=== PATIENT | male | born 1940 | race Caucasian/White ===

== ENCOUNTER 2018-05-03 18:10 | Observation (INO) | payer MEDICARE, BC ==
[2018-05-03] MEDS ORDERED: Sodium Chloride 0.9% 1,000 ML IV SCH (19:00)
[2018-05-03] MEDS ORDERED: Cefepime 2 GM Vial IVPUSH ONE (19:27)
--- NOTE | 2018-05-03 19:58 | EDM.PDOC ---
ED HPI GENERAL MEDICAL PROBLEM - General Stated Complaint: DIZZY, DOUBLE VISION Time Seen by Provider: 05/03/18 19:09 Source of Information: Reports: Patient History Limitations: Reports: No Limitations - History of Present Illness INITIAL COMMENTS - FREE TEXT/NARRATIVE: c/o sudden onset diplopia 2h [employer] no better, was reading magazine, could not read, no BARRIOS, slight N which is chronic, no V, no f/c/d played 18 holes golf yesterday ([employer], shot 59 for each nine, usual in low 40s), went to dentist this AM and had 2 cavities filled no pain, had weakness and diplopia and unable to walk beginning 4p today no sob 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" with L nephrectomy 2y ago , had lung mets 1m ago had 2 tumors the size of a tennis and golf ball removed from abd, rather than RT which "would have burned a hole in my intestines" 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, 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, had a helmet placed on his head a single RT done with destruction of tumor, last MRI 04/01 reported to have no reoccurrence all surgeries at [facility] today was so weak he had to pull himself up CRP 1.5 form 2y ago BUN/creat 27/1.7 from 8m ago hgb 14.8 from 8m ago AST/ALT/alk phos /13/145 form 8m ago bone scan 1y ago with update at R 7th rib and DJD and no definite bony mets CT abd/pelvis 8m ago on 09-15-17 with splenomegaly by 2 cm increase, probably med in mid abd to R, s/p L nephecotmy, cholelithiasis, sigmoid tics, ASD, DJD gets Opdivo IV q2w has HTN, denies CV problems sxs suspicious for bacteremia and possible sepsis after dental work this AM, will give vanco and cefepime once BC completed - Related Data Allergies Allergy/AdvReac Type Severity Reaction Status Date / Time benazepril HCl Allergy Severe Sweating Verified 07/03/16 18:11 [From Lotensin] clarithromycin Allergy Severe Confusion Verified 07/03/16 18:11 erythromycin base Allergy Severe Nausea and Verified 07/03/16 18:11 Vomiting sulfamethoxazole Allergy Severe Confusion Verified 07/03/16 18:11 [From Bactrim] trimethoprim [From Bactrim] Allergy Severe Confusion Verified 07/03/16 18:11 Home Meds: Home Meds Citalopram Hydrobromide [Citalopram HBr] 20 mg PO DAILY 06/15/16 [History] Acetaminophen [Tylenol] 650 mg PO Q4H PRN 07/03/16 [History] Levothyroxine 25 mcg PO ACBREAKFAST 07/03/16 [History] amLODIPine [Norvasc] 10 mg PO DAILY 07/03/16 [History] Amoxicillin/Potassium Clav [Augmentin 875-125 Tablet] 1 each PO BID #13 tablet 05/03/18 [Rx] Past Medical History Cardiovascular History: Reports: Hypertension Respiratory History: Reports: SOB Other Respiratory History: hx pneu in past Genitourinary History: Reports: Other (See Below) Other Genitourinary History: R kidney CA Psychiatric History: Reports: Anxiety Endocrine/Metabolic History: Reports: Hypoparathyroidism Immunologic History: Reports: Immunosuppression Oncologic (Cancer) History: Reports: Renal - Infectious Disease History Infectious Disease History: Reports: Chicken Pox, Measles - Past Surgical History HEENT Surgical History: Reports: Cataract Surgery Male Surgical History: Reports: Nephrectomy, TURP-Transurethral Resection of Prostate, Other (See Below) Oncologic Surgical History: Reports: Lobectomy, Other (See Below) ED ROS GENERAL - Review of Systems Review Of Systems: See Below Constitutional: Reports: Weakness, Other (ate hamburger for supper). Denies: Fever, Chills, Diaphoresis, Decreased Appetite HEENT: Reports: Vision Change Respiratory: Reports: No Symptoms Cardiovascular: Reports: No Symptoms Endocrine: Reports: No Symptoms GI/Abdominal: Reports: No Symptoms : Reports: No Symptoms Musculoskeletal: Reports: No Symptoms Skin: Reports: No Symptoms Neurological: Reports: Dizziness, Difficulty Walking. Denies: Headache Psychiatric: Reports: No Symptoms Hematologic/Lymphatic: Reports: No Symptoms Immunologic: Reports: No Symptoms ED EXAM GENERAL W FULL EYE - Physical Exam Exam: See Below Exam Limited By: No Limitations General Appearance: Alert, WD/WN, No Apparent Distress, Other (alert, pleasant, appears weak, nontoxic, cooperative) Eye Exam: Bilateral Eye: Other (PERRLA, EOMI, VF intact to confrontation, reads words at 12" altho says he sees 1.5 images) Ears: Normal External Exam, Hearing Grossly Normal Nose: Normal Inspection, Normal Mucosa, No Blood Throat/Mouth: Normal Inspection, Normal Lips, Normal Teeth, Normal Gums, Normal Oropharynx, Normal Voice, No Airway Compromise Head: Atraumatic, Normocephalic Neck: Normal Inspection, Supple, Non-Tender, Full Range of Motion Respiratory/Chest: No Respiratory Distress, Lungs Clear, Normal Breath Sounds, No Accessory Muscle Use, Chest Non-Tender Cardiovascular: Regular Rate, Rhythm, No Edema, No Gallop, No JVD, No Rub, Systolic Murmur GI/Abdominal: Soft, Non-Tender, No Distention, Other (healing fresh midline scar c/w 1m of age, NT) Back Exam: Normal Inspection, Full Range of Motion, NT Extremities: Normal Inspection, Normal Range of Motion, Non-Tender, No Pedal Edema, Normal Capillary Refill, Other Neurological: Alert, Oriented, CN II-XII Intact, Normal Cognition, Normal Reflexes, No Motor/Sensory Deficits, Other (DTRs 2+ x8, symmetric, toes downgoing, 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, ankle flex/ext 5/5 b/l, hip flex/ext symmetric and perhaps slightly diminished at 4.5/5 b/l) Psychiatric: Normal Affect, Normal Mood Skin Exam: Warm, Dry, Intact, Normal Color, No Rash Lymphatic: No Adenopathy Course - Vital Signs Last Recorded V/S: Last Vital Signs Temp 36.8 C 05/03/18 18:10 Pulse 71 05/03/18 18:10 Resp 15 05/03/18 18:10 BP 190/86 H 05/03/18 18:10 Pulse Ox 95 05/03/18 18:10 - Orders/Labs/Meds Orders: Active Orders 24 hr Category Date Time Status EKG Documentation Completion [RC] ASDIRECTED Care 05/03/18 18:58 Active Chest 2V [CR] Stat Exams 05/03/18 18:56 Taken Head wo Cont [CT] Stat Exams 05/03/18 18:56 Taken CULTURE BLOOD [BC] Urgent Lab 05/03/18 19:15 Received CULTURE BLOOD [BC] Urgent Lab 05/03/18 19:25 Received Sodium Chloride 0.9% [Normal Saline] 1,000 ml Med 05/03/18 19:00 Active IV ASDIRECTED Blood Culture x2 Reflex Set [OM.PC] Urgent Oth 05/03/18 19:06 Ordered EKG 12 Lead [EK] Routine Ther 05/03/18 18:56 Ordered Medication Orders Sodium Chloride (Normal Saline) 1,000 mls @ 999 mls/hr IV ASDIRECTED MILLA Last Admin: 05/03/18 19:52 Dose: 999 mls/hr Labs: Laboratory Tests 05/03/18 05/03/18 05/03/18 Range/Units 19:15 19:15 19:25 WBC 7.4 (4.5-12.0) X10-3/uL RBC 4.54 (4.30-5.75) x10(6)uL Hgb 13.3 (11.5-15.5) g/dL Hct 38.5 (30.0-51.3) % MCV 84.8 (80-96) fL MCH 29.3 (27.7-33.6) pg MCHC 34.5 (32.2-35.4) g/dL RDW 14.6 (11.5-15.5) % Plt Count 222 (125-369) X10(3)uL MPV 7.4 (7.4-10.4) fL Neut % (Auto) 60.0 (46-82) % Lymph % (Auto) 29.6 (13-37) % [place] % (Auto) 6.3 (4-12) % Eos % (Auto) 3 (1.0-5.0) % Baso % (Auto) 1 (0-2) % Neut # (Auto) 4.3 (1.6-8.3) # Lymph # (Auto) 2.2 (0.6-5.0) # [place] # (Auto) 0.5 (0.0-1.3) # Eos # (Auto) 0.3 (0.0-0.8) # Baso # (Auto) 0.1 (0.0-0.2) # Sodium 139 (135-145) mmol/L Potassium 3.7 (3.5-5.3) mmol/L Chloride 103 (100-110) mmol/L Carbon Dioxide 30 (21-32) mmol/L BUN 21 H (7-18) mg/dL Creatinine 1.6 H (0.70-1.30) mg/dL Est Cr Clr Drug Dosing 41.09 mL/min Estimated GFR (MDRD) 42 L (>60) BUN/Creatinine Ratio 13.1 (9-20) Glucose 115 (80-116) mg/dL Lactic Acid (0.4-2.2) mmol/L Calcium 7.7 L (8.6-10.2) mg/dL Total Bilirubin 0.5 (0.1-1.3) mg/dL AST 21 (5-25) IU/L ALT 25 (12-36) U/L Alkaline Phosphatase 107 (56-112) IU/L Troponin I < 0.017 L (<0.017-0.056) ng/mL C-Reactive Protein 0.5 (0.5-0.9) mg/dL NT-Pro-B Natriuret Pep 573 H (<=450) pg/mL Total Protein 6.3 (6.0-8.0) g/dL Albumin 3.0 L (3.2-4.6) g/dL Globulin 3.3 g/dL Albumin/Globulin Ratio 0.9 Urine Color (YELLOW) Urine Appearance (CLEAR) Urine pH (5.0-6.5) Ur Specific Hasty (1.010-1.025) Urine Protein (NEGATIVE) mg/dL Urine Glucose (UA) (NEGATIVE) mg/dL Urine Ketones (NEGATIVE) mg/dL Urine Occult Blood (NEGATIVE) Urine Nitrite (NEGATIVE) Urine Bilirubin (NEGATIVE) Urine Urobilinogen (NEGATIVE) mg/dL Ur Leukocyte Esterase (NEGATIVE) Urine RBC (0) Urine WBC (0) Ur Squamous Epith Cells (NS,R,O) Urine Bacteria (NS) 05/03/18 05/03/18 Range/Units 19:25 19:30 WBC (4.5-12.0) X10-3/uL RBC (4.30-5.75) x10(6)uL Hgb (11.5-15.5) g/dL Hct (30.0-51.3) % MCV (80-96) fL MCH (27.7-33.6) pg MCHC (32.2-35.4) g/dL RDW (11.5-15.5) % Plt Count (125-369) X10(3)uL MPV (7.4-10.4) fL Neut % (Auto) (46-82) % Lymph % (Auto) (13-37) % [place] % (Auto) (4-12) % Eos % (Auto) (1.0-5.0) % Baso % (Auto) (0-2) % Neut # (Auto) (1.6-8.3) # Lymph # (Auto) (0.6-5.0) # [place] # (Auto) (0.0-1.3) # Eos # (Auto) (0.0-0.8) # Baso # (Auto) (0.0-0.2) # Sodium (135-145) mmol/L Potassium (3.5-5.3) mmol/L Chloride (100-110) mmol/L Carbon Dioxide (21-32) mmol/L BUN (7-18) mg/dL Creatinine (0.70-1.30) mg/dL Est Cr Clr Drug Dosing mL/min Estimated GFR (MDRD) (>60) BUN/Creatinine Ratio (9-20) Glucose (80-116) mg/dL Lactic Acid 1.5 (0.4-2.2) mmol/L Calcium (8.6-10.2) mg/dL Total Bilirubin (0.1-1.3) mg/dL AST (5-25) IU/L ALT (12-36) U/L Alkaline Phosphatase (56-112) IU/L Troponin I (<0.017-0.056) ng/mL C-Reactive Protein (0.5-0.9) mg/dL NT-Pro-B Natriuret Pep (<=450) pg/mL Total Protein (6.0-8.0) g/dL Albumin (3.2-4.6) g/dL Globulin g/dL Albumin/Globulin Ratio Urine Color Yellow (YELLOW) Urine Appearance Clear (CLEAR) Urine pH 5.0 (5.0-6.5) Ur Specific Hasty 1.010 (1.010-1.025) Urine Protein Negative (NEGATIVE) mg/dL Urine Glucose (UA) Normal (NEGATIVE) mg/dL Urine Ketones Negative (NEGATIVE) mg/dL Urine Occult Blood Negative (NEGATIVE) Urine Nitrite Negative (NEGATIVE) Urine Bilirubin Negative (NEGATIVE) Urine Urobilinogen Normal (NEGATIVE) mg/dL Ur Leukocyte Esterase Negative (NEGATIVE) Urine RBC 0-5 (0) Urine WBC 0-5 (0) Ur Squamous Epith Cells Occasional (NS,R,O) Urine Bacteria Rare H (NS) Meds: Medications Generic Name Dose Route Start Last Admin Trade Name Surjit PRN Reason Stop Dose Admin Sodium Chloride 1,000 mls @ 999 mls/hr 05/03/18 19:00 05/03/18 19:52 Normal Saline IV 999 mls/hr ASDIRECTED MILLA Administration Discontinued Medications Generic Name Dose Route Start Last Admin Trade Name Freq PRN Reason Stop Dose Admin Cefepime HCl 2 gm 05/03/18 19:27 05/03/18 20:33 Maxipime IVPUSH 05/03/18 19:28 2 gm ONETIME ONE Administration Vancomycin HCl 1,250 mg/ 250 mls @ 167 mls/hr 05/03/18 19:27 05/03/18 20:51 Sodium Chloride IV 05/03/18 20:56 167 mls/hr ONETIME ONE Administration - Re-Assessments/Exams Free Text/Narrative Re-Assessment/Exam: 05/03/18 21:34 pt declined admission to either [facility] or here, insisted on going home call placed to PCP Dr Quintana altho he did not answer pt knows he will need to see Dr Quintana or myself tomorrow he did ambulate in [place] with a fair amount of speed with a 4-point rolling walker, still having visual changes which he variously describes as blurring and seeing double head CT was neg labs neg for infection, CRP is 0.5 despite his CA dx pt likely became bacteremic from his dental fillings, would prefer IV antibiotics and pt (and his ) understands this, he did get one dose of vanco 1250 mg and one dose of cefipime 2 gm IV here will continue on Augmentin to cover oral hortencia pt is at 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 Take Augmentin 875/125 mg 1 tab 2 times a day for 7 days. Take a dose first thing in the morning, then poultry picker additional tabs at the pharmacy. See Dr Quintana tomorrow or return to ED and see myself. If you feel worse or develop new symptoms at any time, return to the ED. - My Orders Last 24 Hours: My Active Orders 05/03/18 18:56 Chest 2V [CR] Stat Head wo Cont [CT] Stat EKG 12 Lead [EK] Routine 05/03/18 18:58 EKG Documentation Completion [RC] ASDIRECTED 05/03/18 19:00 Sodium Chloride 0.9% [Normal Saline] 1,000 ml IV ASDIRECTED 05/03/18 19:06 Blood Culture x2 Reflex Set [OM.PC] Urgent 05/03/18 19:15 CULTURE BLOOD [BC] Urgent 05/03/18 19:25 CULTURE BLOOD [BC] Urgent - Assessment/Plan Last 24 Hours: My Active Orders 05/03/18 18:56 Chest 2V [CR] Stat Head wo Cont [CT] Stat EKG 12 Lead [EK] Routine 05/03/18 18:58 EKG Documentation Completion [RC] ASDIRECTED 05/03/18 19:00 Sodium Chloride 0.9% [Normal Saline] 1,000 ml IV ASDIRECTED 05/03/18 19:06 Blood Culture x2 Reflex Set [OM.PC] Urgent 05/03/18 19:15 CULTURE BLOOD [BC] Urgent 05/03/18 19:25 CULTURE BLOOD [BC] Urgent
[2018-05-03] MEDS ORDERED: Amoxicillin/Clavulanate K 875-125 MG Tab PO ONE (21:38)
[2018-05-03] MEDS ORDERED: Acetaminophen 325 MG Tab PO PRN (22:29)
[2018-05-03] MEDS ORDERED: Zolpidem 5 MG Tab PO PRN (22:29)
[2018-05-03] MEDS ORDERED: Dextrose 5%-0.45% NaCl 1,000 ML IV SCH (22:45)
[2018-05-03] MEDS ORDERED: Cefepime 2 GM Vial IVPUSH SCH (23:00)
[2018-05-03] MEDS ORDERED: Sodium Chloride 0.9% 10 ML Syringe FLUSH PRN (23:41)
[2018-05-04] MEDS ORDERED: Cefepime 2 GM Vial IVPUSH SCH (04:00)
[2018-05-04] MEDS ORDERED: Levothyroxine 25 MCG Tab PO SCH (07:30)
--- NOTE | 2018-05-04 08:57 | PCM.HP ---
H&P History of Present Illness - General Date of Service: 05/04/18 Admit Problem/Dx: Admission Diagnosis/Problem Admission Diagnosis/Problem Bacteremia Source of Information: Patient History Limitations: Reports: No Limitations - History of Present Illness Initial Comments - Free Text/Narative: 77-year-old male who came in yesterday because of weakness of the legs and diplopia. Patient states that he's had doubke vision problem before,mostly when he was dehydrated. On Wednesday he had been playing golf most of the day. Yesterday , he states that [place] dental work in AM.2 Hrs before he arrived the ER,he complained of inability to support himself his legs. There was no nausea vomiting headache chest pain or shortness of breath. He has a significant history of hypertension but quit taking Norvasc several years ago because of normal blood pressures. Indeed,his blood pressure was normal in the [facility]. He also has a history metastatic renal cancer to the colon( with recent colon resection) and to the lungs and brain at metastasis as well denies Pain Score (Numeric/FACES): 0 - Related Data Allergies/Adverse Reactions: Allergies Allergy/AdvReac Type Severity Reaction Status Date / Time benazepril HCl Allergy Severe Sweating Verified 05/03/18 21:56 [From Lotensin] clarithromycin Allergy Severe Confusion Verified 05/03/18 21:56 erythromycin base Allergy Severe Nausea and Verified 05/03/18 21:56 Vomiting sulfamethoxazole Allergy Severe Confusion Verified 05/03/18 21:56 [From Bactrim] trimethoprim [From Bactrim] Allergy Severe Confusion Verified 05/03/18 21:56 Home Medications: Home Meds Citalopram Hydrobromide [Citalopram HBr] 20 mg PO DAILY 06/15/16 [History] Acetaminophen [Tylenol] 325 mg PO Q4H PRN 07/03/16 [History] Amoxicillin/Potassium Clav [Augmentin 875-125 Tablet] 1 each PO BID #13 tablet 05/03/18 [Rx] Levothyroxine [Synthroid] 50 mcg PO DAILY 05/04/18 [History] Past Medical History Cardiovascular History: Reports: Hypertension Respiratory History: Reports: SOB Other Respiratory History: hx pneu in past Genitourinary History: Reports: Other (See Below) Other Genitourinary History: L kidney CA Neurological History: Reports: Other (See Below) Other Neuro History: hx of brain tumor Psychiatric History: Reports: Anxiety Endocrine/Metabolic History: Reports: Hypoparathyroidism Immunologic History: Reports: Immunosuppression Oncologic (Cancer) History: Reports: Renal - Infectious Disease History Infectious Disease History: Reports: Chicken Pox, Measles - Past Surgical History HEENT Surgical History: Reports: Cataract Surgery GI Surgical History: Reports: Colonoscopy Other GI Surgeries/Procedures: Abd mass Male Surgical History: Reports: Nephrectomy, TURP-Transurethral Resection of Prostate, Other (See Below) Other Male Surgeries/Procedures: left kidney removed Oncologic Surgical History: Reports: Lobectomy, Other (See Below) Social & Family History - Family History Family Medical History: Unobtainable - Tobacco Use Smoking Status *Q: Never Smoker Second Hand Smoke Exposure: No - Caffeine Use Caffeine Use: Reports: Coffee Other Caffeine Use: 1/2 c per day - Recreational Drug Use Recreational Drug Use: No H&P Review of Systems - Review of Systems: Review Of Systems: ROS reveals no pertinent complaints other than HPI. Exam - Exam Exam: See Below - Vital Signs Vital Signs: Last Vital Signs Temp 98.0 F 05/04/18 04:15 Pulse 72 05/04/18 05:44 Resp 16 05/04/18 05:44 BP 139/75 05/04/18 05:44 Pulse Ox 92 L 05/04/18 04:15 Weight: 96.661 kg - Exam General: Alert, Oriented, 4 HEENT: PERRLA, Hearing Intact, Mucosa Moist & [place], Nares Patent, Normal Nasal Septum, Posterior Pharynx Clear, Conjunctiva Clear, EOMI, EACs Clear, TMs Clear Neck: Supple, Trachea Midline, 2 Lungs: Clear to Auscultation, Normal Respiratory Effort Cardiovascular: Regular Rate, Regular Rhythm GI/Abdominal Exam: Normal Bowel Sounds, Soft, Non-Tender, No Organomegaly, No Distention, No Abnormal Bruit, No Mass, Pelvis Stable (Male) Exam: Deferred Rectal (Males) Exam: Deferred Back Exam: Normal Inspection, Full Range of Motion, NT Extremities: Normal Inspection, Normal Range of Motion, Non-Tender, No Pedal Edema, Normal Capillary Refill Skin: Warm, Dry, Intact Neurological: Cranial Nerves Intact, Reflexes Equal Bilateral Neuro Extensive - Mental Status: Alert, Oriented x3, Normal Mood/Affect, Normal Cognition Neuro Extensive - Motor, Sensory, Reflexes: CN II-XII Intact, Normal Gait, Normal Reflexes Psychiatric: Alert, Normal Affect, Normal Mood - Patient Data Lab Results Last 24 hrs: Laboratory Results - last 24 hr 05/03/18 05/03/18 05/03/18 Range/Units 19:15 19:15 19:25 WBC 7.4 (4.5-12.0) X10-3/uL RBC 4.54 (4.30-5.75) x10(6)uL Hgb 13.3 (11.5-15.5) g/dL Hct 38.5 (30.0-51.3) % MCV 84.8 (80-96) fL MCH 29.3 (27.7-33.6) pg MCHC 34.5 (32.2-35.4) g/dL RDW 14.6 (11.5-15.5) % Plt Count 222 (125-369) X10(3)uL MPV 7.4 (7.4-10.4) fL Neut % (Auto) 60.0 (46-82) % Lymph % (Auto) 29.6 (13-37) % [place] % (Auto) 6.3 (4-12) % Eos % (Auto) 3 (1.0-5.0) % Baso % (Auto) 1 (0-2) % Neut # (Auto) 4.3 (1.6-8.3) # Lymph # (Auto) 2.2 (0.6-5.0) # [place] # (Auto) 0.5 (0.0-1.3) # Eos # (Auto) 0.3 (0.0-0.8) # Baso # (Auto) 0.1 (0.0-0.2) # Sodium 139 (135-145) mmol/L Potassium 3.7 (3.5-5.3) mmol/L Chloride 103 (100-110) mmol/L Carbon Dioxide 30 (21-32) mmol/L BUN 21 H (7-18) mg/dL Creatinine 1.6 H (0.70-1.30) mg/dL Est Cr Clr Drug Dosing 41.09 mL/min Estimated GFR (MDRD) 42 L (>60) BUN/Creatinine Ratio 13.1 (9-20) Glucose 115 (80-116) mg/dL Lactic Acid (0.4-2.2) mmol/L Calcium 7.7 L (8.6-10.2) mg/dL Total Bilirubin 0.5 (0.1-1.3) mg/dL AST 21 (5-25) IU/L ALT 25 (12-36) U/L Alkaline Phosphatase 107 (56-112) IU/L Troponin I < 0.017 L (<0.017-0.056) ng/mL C-Reactive Protein 0.5 (0.5-0.9) mg/dL NT-Pro-B Natriuret Pep 573 H (<=450) pg/mL Total Protein 6.3 (6.0-8.0) g/dL Albumin 3.0 L (3.2-4.6) g/dL Globulin 3.3 g/dL Albumin/Globulin Ratio 0.9 Urine Color (YELLOW) Urine Appearance (CLEAR) Urine pH (5.0-6.5) Ur Specific [place] (1.010-1.025) Urine Protein (NEGATIVE) mg/dL Urine Glucose (UA) (NEGATIVE) mg/dL Urine Ketones (NEGATIVE) mg/dL Urine Occult Blood (NEGATIVE) Urine Nitrite (NEGATIVE) Urine Bilirubin (NEGATIVE) Urine Urobilinogen (NEGATIVE) mg/dL Ur Leukocyte Esterase (NEGATIVE) Urine RBC (0) Urine WBC (0) Ur Squamous Epith Cells (NS,R,O) Urine Bacteria (NS) 05/03/18 05/03/18 05/04/18 Range/Units 19:25 19:30 06:45 WBC 7.9 (4.5-12.0) X10-3/uL RBC 4.98 (4.30-5.75) x10(6)uL Hgb 14.1 (11.5-15.5) g/dL Hct 41.9 (30.0-51.3) % MCV 84.2 (80-96) fL MCH 28.4 (27.7-33.6) pg MCHC 33.7 (32.2-35.4) g/dL RDW 14.6 (11.5-15.5) % Plt Count 244 (125-369) X10(3)uL MPV 7.3 L (7.4-10.4) fL Neut % (Auto) 63.3 (46-82) % Lymph % (Auto) 28.2 (13-37) % [place] % (Auto) 4.9 (4-12) % Eos % (Auto) 3 (1.0-5.0) % Baso % (Auto) 1 (0-2) % Neut # (Auto) 5.1 (1.6-8.3) # Lymph # (Auto) 2.2 (0.6-5.0) # [place] # (Auto) 0.4 (0.0-1.3) # Eos # (Auto) 0.2 (0.0-0.8) # Baso # (Auto) 0.0 (0.0-0.2) # Sodium (135-145) mmol/L Potassium (3.5-5.3) mmol/L Chloride (100-110) mmol/L Carbon Dioxide (21-32) mmol/L BUN (7-18) mg/dL Creatinine (0.70-1.30) mg/dL Est Cr Clr Drug Dosing mL/min Estimated GFR (MDRD) (>60) BUN/Creatinine Ratio (9-20) Glucose (80-116) mg/dL Lactic Acid 1.5 (0.4-2.2) mmol/L Calcium (8.6-10.2) mg/dL Total Bilirubin (0.1-1.3) mg/dL AST (5-25) IU/L ALT (12-36) U/L Alkaline Phosphatase (56-112) IU/L Troponin I (<0.017-0.056) ng/mL C-Reactive Protein (0.5-0.9) mg/dL NT-Pro-B Natriuret Pep (<=450) pg/mL Total Protein (6.0-8.0) g/dL Albumin (3.2-4.6) g/dL Globulin g/dL Albumin/Globulin Ratio Urine Color Yellow (YELLOW) Urine Appearance Clear (CLEAR) Urine pH 5.0 (5.0-6.5) Ur Specific [place] 1.010 (1.010-1.025) Urine Protein Negative (NEGATIVE) mg/dL Urine Glucose (UA) Normal (NEGATIVE) mg/dL Urine Ketones Negative (NEGATIVE) mg/dL Urine Occult Blood Negative (NEGATIVE) Urine Nitrite Negative (NEGATIVE) Urine Bilirubin Negative (NEGATIVE) Urine Urobilinogen Normal (NEGATIVE) mg/dL Ur Leukocyte Esterase Negative (NEGATIVE) Urine RBC 0-5 (0) Urine WBC 0-5 (0) Ur Squamous Epith Cells Occasional (NS,R,O) Urine Bacteria Rare H (NS) 05/04/18 05/04/18 Range/Units 06:45 06:45 WBC (4.5-12.0) X10-3/uL RBC (4.30-5.75) x10(6)uL Hgb (11.5-15.5) g/dL Hct (30.0-51.3) % MCV (80-96) fL MCH (27.7-33.6) pg MCHC (32.2-35.4) g/dL RDW (11.5-15.5) % Plt Count (125-369) X10(3)uL MPV (7.4-10.4) fL Neut % (Auto) (46-82) % Lymph % (Auto) (13-37) % [place] % (Auto) (4-12) % Eos % (Auto) (1.0-5.0) % Baso % (Auto) (0-2) % Neut # (Auto) (1.6-8.3) # Lymph # (Auto) (0.6-5.0) # [place] # (Auto) (0.0-1.3) # Eos # (Auto) (0.0-0.8) # Baso # (Auto) (0.0-0.2) # Sodium 140 (135-145) mmol/L Potassium 4.0 (3.5-5.3) mmol/L Chloride 104 (100-110) mmol/L Carbon Dioxide 28 (21-32) mmol/L BUN 17 (7-18) mg/dL Creatinine 1.5 H (0.70-1.30) mg/dL Est Cr Clr Drug Dosing 42.53 mL/min Estimated GFR (MDRD) 45 L (>60) BUN/Creatinine Ratio 11.3 (9-20) Glucose 127 H (80-116) mg/dL Lactic Acid (0.4-2.2) mmol/L Calcium 8.3 L (8.6-10.2) mg/dL Total Bilirubin (0.1-1.3) mg/dL AST (5-25) IU/L ALT (12-36) U/L Alkaline Phosphatase (56-112) IU/L Troponin I (<0.017-0.056) ng/mL C-Reactive Protein 0.4 L (0.5-0.9) mg/dL NT-Pro-B Natriuret Pep (<=450) pg/mL Total Protein (6.0-8.0) g/dL Albumin (3.2-4.6) g/dL Globulin g/dL Albumin/Globulin Ratio Urine Color (YELLOW) Urine Appearance (CLEAR) Urine pH (5.0-6.5) Ur Specific [place] (1.010-1.025) Urine Protein (NEGATIVE) mg/dL Urine Glucose (UA) (NEGATIVE) mg/dL Urine Ketones (NEGATIVE) mg/dL Urine Occult Blood (NEGATIVE) Urine Nitrite (NEGATIVE) Urine Bilirubin (NEGATIVE) Urine Urobilinogen (NEGATIVE) mg/dL Ur Leukocyte Esterase (NEGATIVE) Urine RBC (0) Urine WBC (0) Ur Squamous Epith Cells (NS,R,O) Urine Bacteria (NS) Result Diagrams: 05/04/18 06:45 05/04/18 06:45 *Q Meaningful Use (ADM) - VTE *Q VTE Anticoagulation Contraindications: Med/TX Not Indicated/Need - Problem List (1) Diplopia SNOMED Code(s): 36724708 ICD Code: H53.2 - DIPLOPIA Status: Acute Current Visit: Yes (2) Difficulty walking SNOMED Code(s): 635862937 ICD Code: R26.2 - DIFFICULTY IN WALKING, NOT ELSEWHERE CLASSIFIED Status: Acute Current Visit: Yes (3) CKD (chronic kidney disease) SNOMED Code(s): 675893263 ICD Code: N18.9 - CHRONIC KIDNEY DISEASE, UNSPECIFIED Status: Acute Current Visit: Yes Qualifiers: Chronic kidney disease stage: stage 3 (moderate) Qualified Code(s): N18.3 - Chronic kidney disease, stage 3 (moderate) (4) HTN, Benign essential hypertension SNOMED Code(s): 6353376 ICD Code: I10 - ESSENTIAL (PRIMARY) HYPERTENSION Status: Acute Current Visit: No Problem Details: Stable Stable continue current medication (5) Renal cell cancer SNOMED Code(s): 862073383, 695253183 ICD Code: C64.9 - MALIGNANT NEOPLASM OF UNSP KIDNEY, EXCEPT RENAL PELVIS Status: Acute Current Visit: No Problem Details: Follow up with Oncology Qualifiers: Laterality: left Qualified Code(s): C64.2 - Malignant neoplasm of left kidney, except renal pelvis Problem List Initiated/Reviewed/Updated: Yes Orders Last 24hrs: Active Orders 24 hr Category Date Time Status Admission Status [Patient Status] [ADT] Routine ADT 05/03/18 21:44 Active EKG Documentation Completion [RC] ASDIRECTED Care 05/03/18 18:58 Active Oxygen Therapy [RC] PRN Care 05/03/18 22:26 Active Up With Assistance [RC] ASDIRECTED Care 05/03/18 22:26 Active VTE/DVT Education [RC] Per Unit Routine Care 05/03/18 22:26 Active Vital Signs [RC] 00,04,08,12,16,20 Care 05/03/18 22:26 Active Regular Diet [DIET] Diet 05/04/18 Lunch Active Chest 2V [CR] Stat Exams 05/03/18 18:56 Taken Head wo Cont [CT] Stat Exams 05/03/18 18:56 Taken BASIC METABOLIC PANEL,BMP [CHEM] AM Lab 05/05/18 05:11 Ordered BASIC METABOLIC PANEL,BMP [CHEM] AM Lab 05/06/18 05:11 Ordered CBC WITH AUTO DIFF [HEME] AM Lab 05/05/18 05:11 Ordered CBC WITH AUTO DIFF [HEME] AM Lab 05/06/18 05:11 Ordered CULTURE BLOOD [BC] Urgent Lab 05/03/18 19:15 Received CULTURE BLOOD [BC] Urgent Lab 05/03/18 19:25 Received Acetaminophen [Tylenol] Med 05/03/18 22:29 Active 650 mg PO Q4H PRN Cefepime [Maxipime] Med 05/04/18 04:00 Active 2 gm IVPUSH Q8H Citalopram [Celexa] Med 05/04/18 09:00 Active 20 mg PO DAILY Dextrose 5%-0.45% NaCl [Dextrose 5%-1/2 NS] 1,000 ml Med 05/03/18 22:45 Active IV ASDIRECTED Heparin Sodium [Heparin Lock Flush 100 Units/ML] Med 05/03/18 23:42 Active 500 units FLUSH ASDIRECTED PRN Levothyroxine Med 05/04/18 07:30 Active 25 mcg PO ACBREAKFAST Sodium Chloride 0.9% [Normal Saline] 1,000 ml Med 05/03/18 19:00 Active IV ASDIRECTED Sodium Chloride 0.9% [Saline Flush] Med 05/03/18 23:41 Active 10 ml FLUSH ASDIRECTED PRN Vancomycin 1,250 mg Med 05/04/18 19:30 Active Sodium Chloride 0.9% [Normal Saline] 250 ml IV Q24H Zolpidem [Ambien] Med 05/03/18 22:29 Active 5 mg PO BEDTIME PRN amLODIPine [Norvasc] Med 05/04/18 09:00 Active 10 mg PO DAILY Anticoagulation Contraindications VTE [AST] Per Unit Oth 05/03/18 22:26 Ordered Routine Blood Culture x2 Reflex Set [OM.PC] Urgent Oth 05/03/18 19:06 Ordered Resuscitation Status Routine Resus Stat 05/03/18 22:26 Ordered EKG 12 Lead [EK] Routine Ther 05/03/18 18:56 Ordered Medication Orders Acetaminophen (Tylenol) 650 mg PO Q4H PRN PRN Reason: Pain (Mild 1-3)/fever Amlodipine Besylate (Norvasc) 10 mg PO DAILY [facility] Cefepime HCl (Maxipime) 2 gm IVPUSH Q8H [facility] Last Admin: 05/04/18 04:19 Dose: 2 gm Citalopram Hydrobromide (Celexa) 20 mg PO DAILY [facility] Heparin Sodium (Porcine) (Heparin Lock Flush 100 Units/Ml) 500 units FLUSH ASDIRECTED PRN PRN Reason: Port-a-cath maintenance. Sodium Chloride (Normal Saline) 1,000 mls @ 999 mls/hr IV ASDIRECTED [facility] Last Admin: 05/03/18 19:52 Dose: 999 mls/hr Vancomycin HCl 1,250 mg/ (Sodium Chloride) 250 mls @ 167 mls/hr IV Q24H [facility] Dextrose/Sodium Chloride (Dextrose 5%-1/2 Ns) 1,000 mls @ 50 mls/hr IV ASDIRECTED MILLA Last Admin: 05/04/18 01:30 Dose: 50 mls/hr Levothyroxine Sodium (Levothyroxine) 25 mcg PO ACBREAKFAST [facility] Sodium Chloride (Saline Flush) 10 ml FLUSH ASDIRECTED PRN PRN Reason: Keep Vein Open Zolpidem Tartrate (Ambien) 5 mg PO BEDTIME PRN PRN Reason: Sleep Assessment/Plan Comment:: When feels much better this morning. He complains of no double vision headache chest pain or shortness of breath. His blood pressure was high last night but trending down today. He's been able to walk using a walker in the hallways. He would like to go home. I see no reason to keep him and will discharge him back home on his regular medications. I willadd Kennedi,that he previously took,and I will like him to follow-up with his PCP, to determine if indeed he needs to continue on it
[2018-05-04] MEDS ORDERED: amLODIPine 10 MG Tab PO SCH (09:00)
[2018-05-04] MEDS ORDERED: Citalopram 20 MG Tab PO SCH (09:00)
[2018-05-04 09:57] VITALS: BP 136/91
--- NOTE | 2018-05-04 12:00 | CR ---
INDICATION: Complains of diplopia, renal cell carcinoma two years ago with history of lung metastases. CHEST: Two PA views and a lateral view of the chest were obtained 05/03/2018 and compared with 03/23/2018 and 07/03/2016. No evidence of CHF is seen on the current study. The heart did not appear enlarged. The aorta is tortuous with minimal calcification in the arch. Dextroconvex scoliosis of the thoracic spine is moderately severe. Central line is again noted in place, unchanged in position. Linear densities in the lower middle lung field on the right are compatible with scarring. Previous nodularity in that area has largely involuted. A nodule seen in the left upper lung field has also largely involuted, compared with the previous study of 2016. A linear density at the left lung base near the costophrenic angle is unchanged from 2016 and likely fibrotic in nature. At this time, a definite active infiltrate or effusion or definite metastatic disease process that is progressive is not identified. IMPRESSION: 1. No definite acute process. 2. Areas of scarring noted in the left upper lung field and lower middle lung field on the right, apparently at sites of previous neoplasia - metastatic disease, which has for the most part involuted. 3. Probable COPD. 4. Scoliosis. 5. ASD aorta. MTDD
== END 2018-05-04 10:15 | disposition home or self-care (01) ==
LOC: FB.ED 18:10 → FB.MS 21:44
PROVIDERS: ADMIT Emergency Medicine; ATTEND Family Medicine
DX: H53.2 Diplopia (principal); R26.2 Difficulty in walking, not elsewhere classified; R78.81 Bacteremia; I12.9 Hypertensive chronic kidney disease with stage 1 through stage 4 chronic kidney disease, or unspecified chronic kidney disease; N18.3 Chronic kidney disease, stage 3 (moderate); M41.9 Scoliosis, unspecified; C64.2 Malignant neoplasm of left kidney, except renal pelvis; Z79.2 Long term (current) use of antibiotics; Z79.899 Other long term (current) drug therapy; Z88.1 Allergy status to other antibiotic agents; Z88.2 Allergy status to sulfonamides; Z88.8 Allergy status to other drugs, medicaments and biological substances; E20.9 Hypoparathyroidism, unspecified
CPT/HCPCS: 36415; 70450; 71046; 80048; 80053; 81001; 83605; 83880; 84484; 85025; 86140; 87040; 93005; 93010; 96361; 96365; 96366; 96375; 96376; 99284; 99285; G0378; J0692; J1642; J3370; J7030; J7050

== ENCOUNTER 2019-09-21 06:33 | Emergency (ER) | payer MEDICARE, BC ==
--- NOTE | 2019-09-21 07:00 | EDM.PDOC ---
<Justyn Patterson - Last Filed: 09/21/19 07:49> ED HPI GENERAL MEDICAL PROBLEM - General Stated Complaint: nose bleed Time Seen by Provider: 09/21/19 06:56 Source of Information: Reports: Patient History Limitations: Reports: No Limitations - Related Data Allergies Allergy/AdvReac Type Severity Reaction Status Date / Time benazepril HCl Allergy Severe Sweating Verified 09/21/19 07:42 [From Lotensin] clarithromycin Allergy Severe Confusion Verified 09/21/19 07:42 erythromycin base Allergy Severe Nausea and Verified 09/21/19 07:42 Vomiting sulfamethoxazole Allergy Severe Confusion Verified 09/21/19 07:42 [From Bactrim] trimethoprim [From Bactrim] Allergy Severe Confusion Verified 09/21/19 07:42 Home Meds: Home Meds Citalopram Hydrobromide [Citalopram HBr] 20 mg PO DAILY 06/15/16 [History] Acetaminophen [Tylenol] 325 mg PO Q4H PRN 07/03/16 [History] Levothyroxine [Synthroid] 50 mcg PO DAILY 05/04/18 [History] amLODIPine Besylate [Norvasc] 10 mg PO DAILY #30 tablet 05/04/18 [Rx] Axitinib [Inlyta] 5 mg PO DAILY 09/21/19 [History] Prochlorperazine [Compazine] 10 mg PO Q4HR PRN 09/21/19 [History] Tamsulosin HCl 0.8 mg PO BEDTIME 09/21/19 [History] Past Medical History Cardiovascular History: Reports: Hypertension Genitourinary History: Reports: BPH, Chronic Renal Insuffiency, Other (See Below ) (Renal CA) ED ROS ENT - Review of Systems Review Of Systems: See Below Constitutional: Reports: No Symptoms HEENT: Reports: Nosebleed Respiratory: Reports: No Symptoms Cardiovascular: Reports: No Symptoms Endocrine: Reports: No Symptoms GI/Abdominal: Reports: No Symptoms : Reports: No Symptoms Musculoskeletal: Reports: No Symptoms Skin: Reports: No Symptoms Neurological: Reports: No Symptoms Psychiatric: Reports: No Symptoms ED EXAM, ENT - Physical Exam Exam: See Below Exam Limited By: No Limitations General Appearance: Alert, No Apparent Distress Eye Exam: Bilateral Eye: PERRL Ears: Normal External Exam, Normal Canal, Hearing Grossly Normal Nose: Other (rt sided epistaxis) Head: Atraumatic, Normocephalic Neck: Normal Inspection, Supple, Non-Tender Respiratory/Chest: No Respiratory Distress, Lungs Clear, Respiratory Distress Cardiovascular: Normal Peripheral Pulses, Regular Rate, Rhythm, No Edema, No Gallop, No JVD, No Murmur GI/Abdominal: Normal Bowel Sounds, Soft, Non-Tender, No Organomegaly Skin: Warm, Dry Course - Vital Signs Text/Narrative:: Rhinopack applied by Dr Chang labs reviewed with patient Last Recorded V/S: Last Vital Signs Temp 97.1 F 09/21/19 07:00 Pulse 76 09/21/19 08:05 Resp 22 H 09/21/19 08:05 BP 136/87 09/21/19 08:05 Pulse Ox 100 09/21/19 08:05 - Orders/Labs/Meds Labs: Laboratory Tests 09/21/19 09/21/19 Range/Units 07:10 07:10 WBC 9.2 (4.5-12.0) X10-3/uL RBC 5.07 (4.30-5.75) x10(6)uL Hgb 15.1 (13.5-17.8) g/dL Hct 44.7 (30.0-51.3) % MCV 88.1 (80-96) fL MCH 29.8 (27.7-33.6) pg MCHC 33.8 (32.2-35.4) g/dL RDW 14.3 (11.5-15.5) % Plt Count 269 (125-369) X10(3)uL MPV 7.1 L (7.4-10.4) fL Neut % (Auto) 59.8 (46-82) % Lymph % (Auto) 32.8 (13-37) % [place] % (Auto) 4.0 (4-12) % Eos % (Auto) 3 (1.0-5.0) % Baso % (Auto) 1 (0-2) % Neut # (Auto) 5.5 (1.6-8.3) # Lymph # (Auto) 3.0 (0.6-5.0) # [place] # (Auto) 0.4 (0.0-1.3) # Eos # (Auto) 0.2 (0.0-0.8) # Baso # (Auto) 0.1 (0.0-0.2) # PT 10.6 (8.7-11.1) INR 1.09 (0.89-1.13) Departure - Departure Time of Disposition: 07:55 Disposition: Home, Self-Care 01 Condition: Good Clinical Impression: Epistaxis - Discharge Information *PRESCRIPTION DRUG MONITORING PROGRAM REVIEWED*: No *COPY OF PRESCRIPTION DRUG MONITORING REPORT IN PATIENT MALLORY: No Instructions: Nosebleed, Adult Referrals: Jigar Quach MD [Primary Care Provider] - Forms: ED Department Discharge Additional Instructions: Please read discharge instructions on nose bleeds deflate the nasal pack after 24 hours then pull it gently follow up with ENT if your nose bleed keeps on recurring. No aspirin,aleve,ibuprofen for a week MLP Sign Off - Signature Requirements MLP Sign Off: Yes <CharleneAnjum Meggan - Last Filed: 09/22/19 05:41> ED HPI GENERAL MEDICAL PROBLEM - General Source of Information: Reports: Patient History Limitations: Reports: No Limitations - History of Present Illness INITIAL COMMENTS - FREE TEXT/NARRATIVE: 79 yo with epistaxis of sudden onset for the last 1 hr. They tried pressure, with no relief. He reports choking on it, as it drains in the back of his throat. Jesus Alberto has a h/o metastatic renal cancer,HTN,and CKD. He denies any use of blood thinners. He is on chemo-INLYTA 5 mg a day Past Medical History Cardiovascular History: Reports: Hypertension Respiratory History: Reports: SOB Other Respiratory History: hx pneu in past Genitourinary History: Reports: Other (See Below) Other Genitourinary History: L kidney CA Neurological History: Reports: Other (See Below) Other Neuro History: hx of brain tumor Psychiatric History: Reports: Anxiety Endocrine/Metabolic History: Reports: Hypoparathyroidism Immunologic History: Reports: Immunosuppression Oncologic (Cancer) History: Reports: Renal - Infectious Disease History Infectious Disease History: Reports: Chicken Pox, Measles - Past Surgical History HEENT Surgical History: Reports: Cataract Surgery GI Surgical History: Reports: Colonoscopy Other GI Surgeries/Procedures: Abd mass Male Surgical History: Reports: Nephrectomy, TURP-Transurethral Resection of Prostate, Other (See Below) Other Male Surgeries/Procedures: left kidney removed Oncologic Surgical History: Reports: Lobectomy, Other (See Below) Social & Family History - Family History Family Medical History: Unobtainable - Caffeine Use Caffeine Use: Reports: Coffee Other Caffeine Use: 1/2 c per day ED ROS ENT - Review of Systems Review Of Systems: ROS reveals no pertinent complaints other than HPI. ED EXAM, ENT - Physical Exam Exam: See Below Exam Limited By: No Limitations General Appearance: Alert, WD/WN Course - Vital Signs Last Recorded V/S: Last Vital Signs Temp 97.1 F 09/21/19 07:00 Pulse 76 09/21/19 08:05 Resp 22 H 09/21/19 08:05 BP 136/87 09/21/19 08:05 Pulse Ox 100 09/21/19 08:05 - Orders/Labs/Meds Labs: Laboratory Tests 09/21/19 09/21/19 Range/Units 07:10 07:10 WBC 9.2 (4.5-12.0) X10-3/uL RBC 5.07 (4.30-5.75) x10(6)uL Hgb 15.1 (13.5-17.8) g/dL Hct 44.7 (30.0-51.3) % MCV 88.1 (80-96) fL MCH 29.8 (27.7-33.6) pg MCHC 33.8 (32.2-35.4) g/dL RDW 14.3 (11.5-15.5) % Plt Count 269 (125-369) X10(3)uL MPV 7.1 L (7.4-10.4) fL Neut % (Auto) 59.8 (46-82) % Lymph % (Auto) 32.8 (13-37) % [place] % (Auto) 4.0 (4-12) % Eos % (Auto) 3 (1.0-5.0) % Baso % (Auto) 1 (0-2) % Neut # (Auto) 5.5 (1.6-8.3) # Lymph # (Auto) 3.0 (0.6-5.0) # [place] # (Auto) 0.4 (0.0-1.3) # Eos # (Auto) 0.2 (0.0-0.8) # Baso # (Auto) 0.1 (0.0-0.2) # PT 10.6 (8.7-11.1) INR 1.09 (0.89-1.13) - Problem List & Annotations (1) CKD (chronic kidney disease) SNOMED Code(s): 559760081 Code(s): N18.9 - CHRONIC KIDNEY DISEASE, UNSPECIFIED Status: Acute Qualifiers: Chronic kidney disease stage: stage 3 (moderate) Qualified Code(s): N18.3 - Chronic kidney disease, stage 3 (moderate) (2) Epistaxis SNOMED Code(s): 573327730 Code(s): R04.0 - EPISTAXIS Status: Acute (3) HTN, Benign essential hypertension SNOMED Code(s): 0470238 Code(s): I10 - ESSENTIAL (PRIMARY) HYPERTENSION Status: Acute Annotation/ Comment:: Stable Stable continue current medication (4) Renal cell cancer SNOMED Code(s): 600554696, 992758672 Code(s): C64.9 - MALIGNANT NEOPLASM OF UNSP KIDNEY, EXCEPT RENAL PELVIS Status: Acute Annotation/Comment:: Follow up with Oncology Qualifiers: Laterality: left Qualified Code(s): C64.2 - Malignant neoplasm of left kidney, except renal pelvis - Problem List Review Problem List Initiated/Reviewed/Updated: Yes - Assessment/Plan Plan: I obtained a CBC,IV access and tried a Rhino Rocket. No improvement,as I handed over to the oncoming physician
[2019-09-21 07:45] VITALS: PULSE 76
[2019-09-21 08:33] VITALS: BP 136/87
== END 2019-09-21 08:15 | disposition home or self-care (01) ==
LOC: FB.ED 06:33
DX: R04.0 Epistaxis (principal); I12.9 Hypertensive chronic kidney disease with stage 1 through stage 4 chronic kidney disease, or unspecified chronic kidney disease; N18.9 Chronic kidney disease, unspecified; F41.9 Anxiety disorder, unspecified; E20.9 Hypoparathyroidism, unspecified; Z88.1 Allergy status to other antibiotic agents; Z88.2 Allergy status to sulfonamides; Z88.8 Allergy status to other drugs, medicaments and biological substances; Z79.899 Other long term (current) drug therapy; Z85.528 Personal history of other malignant neoplasm of kidney
CPT/HCPCS: 30903; 36415; 85025; 85610; 99283-25

== ENCOUNTER 2020-09-02 09:23 | Inpatient (IN) | payer MEDICARE, BC, OTHER ==
[2020-09-02] MEDS ORDERED: Sodium Chloride 0.9% 500 ML IV ONE (09:50)
--- NOTE | 2020-09-02 09:57 | EDM.PDOC ---
ED HPI GENERAL MEDICAL PROBLEM - General Chief Complaint: Respiratory Problem Stated Complaint: COUGH,CONGESTION Time Seen by Provider: 09/02/20 09:40 Source of Information: Reports: Patient, Old Records History Limitations: Reports: No Limitations - History of Present Illness INITIAL COMMENTS - FREE TEXT/NARRATIVE: Jesus Alberto comes into [facility] ED with some reports of cough, congestion, and appearance of BRB tinged sputa this am. There is no known exposure,fever, chills or sweats. There is some generalized chest pain with coughing, but no mounika pleurisy. He denies GERD, nasal congestion or sore throat, and has tried no meds. He fell in the BR at 3 am yesterday am, EMS summoned, and following observation and no new findiings, was placed back to bed. He remained resting all day yesterday. Of interest is a PMH of Renal Cell CA diagnosed 4 years ago, reportedly stable from last visit with oncologist about 4 mos ago. There is also a PMH of brain tumor that was irradiated about 3 years ago, and reportedly stable. 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 Chest Pain Score (Numeric/FACES): 4 - Related Data Allergies Allergy/AdvReac Type Severity Reaction Status Date / Time benazepril HCl Allergy Severe Sweating Verified 09/02/20 09:34 [From Lotensin] clarithromycin Allergy Severe Confusion Verified 09/02/20 09:34 erythromycin base Allergy Severe Nausea and Verified 09/02/20 09:34 Vomiting sulfamethoxazole Allergy Severe Confusion Verified 09/02/20 09:34 [From Bactrim] trimethoprim [From Bactrim] Allergy Severe Confusion Verified 09/02/20 09:34 Home Meds: Home Meds Acetaminophen [Tylenol] 325 mg PO Q4H PRN 07/03/16 [History] Levothyroxine [Synthroid] 50 mcg PO DAILY 05/04/18 [History] Tamsulosin HCl 0.8 mg PO BEDTIME 09/21/19 [History] Aspirin [Adult Low Dose Aspirin EC] 81 mg PO DAILY 09/02/20 [History] Finasteride [Proscar] 5 mg PO DAILY 09/02/20 [History] Past Medical History Cardiovascular History: Reports: Hypertension Respiratory History: Reports: SOB Other Respiratory History: hx pneu in past Genitourinary History: Reports: Other (See Below) Other Genitourinary History: L kidney CA Neurological History: Reports: Other (See Below) Other Neuro History: hx of brain tumor Psychiatric History: Reports: Anxiety Endocrine/Metabolic History: Reports: Hypoparathyroidism Immunologic History: Reports: Immunosuppression Oncologic (Cancer) History: Reports: Renal - Infectious Disease History Infectious Disease History: Reports: Chicken Pox, Measles - Past Surgical History HEENT Surgical History: Reports: Cataract Surgery GI Surgical History: Reports: Colonoscopy Other GI Surgeries/Procedures: Abd mass Male Surgical History: Reports: Nephrectomy, TURP-Transurethral Resection of Prostate, Other (See Below) Other Male Surgeries/Procedures: left kidney removed Oncologic Surgical History: Reports: Lobectomy, Other (See Below) Social & Family History - Family History Family Medical History: Unobtainable - Tobacco Use Tobacco Use Status *Q: Never Tobacco User - Caffeine Use Caffeine Use: Reports: Coffee Other Caffeine Use: 1/2 c per day - Recreational Drug Use Recreational Drug Use: No ED ROS GENERAL - Review of Systems Review Of Systems: See Below Constitutional: Reports: Malaise HEENT: Reports: No Symptoms Respiratory: Reports: Cough, Hemoptysis Cardiovascular: Reports: Chest Pain Endocrine: Reports: No Symptoms GI/Abdominal: Reports: Abdominal Pain (R mid abdomen) : Reports: No Symptoms Musculoskeletal: Reports: No Symptoms Skin: Reports: No Symptoms Neurological: Reports: Pre-Existing Deficit Psychiatric: Reports: No Symptoms Hematologic/Lymphatic: Reports: No Symptoms Immunologic: Reports: No Symptoms ED EXAM, GENERAL - Physical Exam Exam: See Below Exam Limited By: No Limitations General Appearance: Alert, WD/WN, No Apparent Distress, Anxious Eye Exam: Bilateral Eye: EOMI, Normal Inspection, PERRL Ears: Normal External Exam Nose: Normal Inspection Throat/Mouth: Normal Inspection, Normal Oropharynx Head: Normocephalic Neck: Normal Inspection, Supple, Non-Tender Respiratory/Chest: No Respiratory Distress, No Accessory Muscle Use, Decreased Breath Sounds, Rales (Left) Cardiovascular: Regular Rate, Rhythm, No Murmur GI/Abdominal: Normal Bowel Sounds, Soft, Non-Tender, No Organomegaly, No Distention, No Mass (Male) Exam: Deferred Rectal (Males) Exam: Deferred Back Exam: Normal Inspection Extremities: Normal Inspection Neurological: Alert, Oriented, CN II-XII Intact, Normal Cognition, No Motor/Sensory Deficits Psychiatric: Normal Affect, Anxious Skin Exam: Warm, Dry, Intact, Normal Color Lymphatic: No Adenopathy Course - Vital Signs Text/Narrative:: Following assessment, I started an IV in the RUE and administered NS 0.5L as a b olus, followed by maintenance fluids pending results of screening tests. CBC noted Hgb 13.6 gm, WBC 26,700, ptls adequate; lactic a 5, CRP 46.4l; CMP noted Cr 2.7, BUN 48, Troponin 31; ddimer: 3.13; INR 1.52; chest x ray noted bilateral atelectasis with infiltrates L lower lung field; Covid Screen NEG: ekg noted NSR. I empiracally started Mr Velasco on Levaquin 750 mg IV q 48 hrs per Pharmacy dosing recommendation for CKD, and admission for CAP. Last Recorded V/S: Last Vital Signs Temp 36.8 C 09/02/20 09:23 Pulse 98 09/02/20 09:23 Resp 16 09/02/20 09:23 BP 124/71 09/02/20 09:23 Pulse Ox 93 L 09/02/20 09:23 - Orders/Labs/Meds Orders: Active Orders 24 hr Category Date Time Status Patient Status Manage Transfer [TRANSFER] Routine ADT 09/02/20 11:51 Ordered CULTURE BLOOD [BC] Urgent Lab 09/02/20 10:30 Received CULTURE BLOOD [BC] Urgent Lab 09/02/20 10:30 Received UA W/MICROSCOPIC [URIN] Stat Lab 09/02/20 09:36 Ordered Levofloxacin/Dextrose 5%-Water [Levaquin in D5W 750 MG/ Med 09/02/20 11:30 Active 150 ML] 750 mg Premix Bag 1 bag IV Q24H Sodium Chloride 0.9% [Normal Saline] 1,000 ml Med 09/02/20 10:00 Active IV ASDIRECTED Blood Culture x2 Reflex Set [OM.PC] Urgent Oth 09/02/20 10:17 Ordered Medication Orders Sodium Chloride (Normal Saline) 1,000 mls @ 999 mls/hr IV ASDIRECTED MILLA Last Infusion: 09/02/20 10:30 Dose: 250 mls/hr Documented by: Admin: 09/02/20 09:58 Dose: 999 mls/hr Documented by: KORINA Levofloxacin/Dextrose 750 mg/ (Premix) 150 mls @ 100 mls/hr IV Q24H MILLA Last Admin: 09/02/20 11:38 Dose: 100 mls/hr Documented by: KORINA Labs: Laboratory Tests 09/02/20 09/02/20 09/02/20 Range/Units 09:40 09:40 09:40 WBC 26.7 H (4.5-12.0) X10-3/uL RBC 4.48 (4.30-5.75) x10(6)uL Hgb 13.6 (13.5-17.8) g/dL Hct 39.5 (30.0-51.3) % MCV 88.1 (80-96) fL MCH 30.4 (27.7-33.6) pg MCHC 34.5 (32.2-35.4) g/dL RDW 15.6 H (11.5-15.5) % Plt Count 230 (125-369) X10(3)uL MPV 7.2 L (7.4-10.4) fL Add Manual Diff Yes Neutrophils % (Manual) 76 (46-82) % Band Neutrophils % 12 H (0-6) % Lymphocytes % (Manual) 3 L (13-37) % Monocytes % (Manual) 9 (4-12) % Basophilic Stippling Moderate H PT 16.0 H (9.0-11.1) sec INR 1.52 H (1.00-1.24) D-Dimer, Quantitative 3.13 H (0.0-0.59) mg/LFEU Sodium 137 (135-145) mmol/L Potassium 4.5 (3.5-5.3) mmol/L Chloride 100 (100-110) mmol/L Carbon Dioxide 22 (21-32) mmol/L BUN 48 H D (7-18) mg/dL Creatinine 2.7 H* (0.70-1.30) mg/dL Est Cr Clr Drug Dosing 22.47 mL/min Estimated GFR (MDRD) 23 L (>60) BUN/Creatinine Ratio 17.8 (9-20) Glucose 163 H (80-116) mg/dL Lactic Acid (0.4-2.0) mmol/L Calcium 8.8 (8.6-10.2) mg/dL Total Bilirubin 1.4 H (0.1-1.3) mg/dL AST 35 H D (5-25) IU/L ALT 23 (12-36) U/L Alkaline Phosphatase 106 (56-112) IU/L Troponin I (4.0-60.3) pg/mL C-Reactive Protein (0.5-0.9) mg/dL Total Protein 6.8 (6.0-8.0) g/dL Albumin 2.9 L (3.2-4.6) g/dL Globulin 3.9 g/dL Albumin/Globulin Ratio 0.7 SARS-CoV-2 RNA (MACHELLE) (NEGATIVE) 09/02/20 09/02/20 09/02/20 Range/Units 09:40 09:40 10:30 WBC (4.5-12.0) X10-3/uL RBC (4.30-5.75) x10(6)uL Hgb (13.5-17.8) g/dL Hct (30.0-51.3) % MCV (80-96) fL MCH (27.7-33.6) pg MCHC (32.2-35.4) g/dL RDW (11.5-15.5) % Plt Count (125-369) X10(3)uL MPV (7.4-10.4) fL Add Manual Diff Neutrophils % (Manual) (46-82) % Band Neutrophils % (0-6) % Lymphocytes % (Manual) (13-37) % Monocytes % (Manual) (4-12) % Basophilic Stippling PT (9.0-11.1) sec INR (1.00-1.24) D-Dimer, Quantitative (0.0-0.59) mg/LFEU Sodium (135-145) mmol/L Potassium (3.5-5.3) mmol/L Chloride (100-110) mmol/L Carbon Dioxide (21-32) mmol/L BUN (7-18) mg/dL Creatinine (0.70-1.30) mg/dL Est Cr Clr Drug Dosing mL/min Estimated GFR (MDRD) (>60) BUN/Creatinine Ratio (9-20) Glucose (80-116) mg/dL Lactic Acid 5.0 H* (0.4-2.0) mmol/L Calcium (8.6-10.2) mg/dL Total Bilirubin (0.1-1.3) mg/dL AST (5-25) IU/L ALT (12-36) U/L Alkaline Phosphatase (56-112) IU/L Troponin I 31.0 (4.0-60.3) pg/mL C-Reactive Protein 46.4 H* (0.5-0.9) mg/dL Total Protein (6.0-8.0) g/dL Albumin (3.2-4.6) g/dL Globulin g/dL Albumin/Globulin Ratio SARS-CoV-2 RNA (MACHELLE) (NEGATIVE) 09/02/20 Range/Units 10:35 WBC (4.5-12.0) X10-3/uL RBC (4.30-5.75) x10(6)uL Hgb (13.5-17.8) g/dL Hct (30.0-51.3) % MCV (80-96) fL MCH (27.7-33.6) pg MCHC (32.2-35.4) g/dL RDW (11.5-15.5) % Plt Count (125-369) X10(3)uL MPV (7.4-10.4) fL Add Manual Diff Neutrophils % (Manual) (46-82) % Band Neutrophils % (0-6) % Lymphocytes % (Manual) (13-37) % Monocytes % (Manual) (4-12) % Basophilic Stippling PT (9.0-11.1) sec INR (1.00-1.24) D-Dimer, Quantitative (0.0-0.59) mg/LFEU Sodium (135-145) mmol/L Potassium (3.5-5.3) mmol/L Chloride (100-110) mmol/L Carbon Dioxide (21-32) mmol/L BUN (7-18) mg/dL Creatinine (0.70-1.30) mg/dL Est Cr Clr Drug Dosing mL/min Estimated GFR (MDRD) (>60) BUN/Creatinine Ratio (9-20) Glucose (80-116) mg/dL Lactic Acid (0.4-2.0) mmol/L Calcium (8.6-10.2) mg/dL Total Bilirubin (0.1-1.3) mg/dL AST (5-25) IU/L ALT (12-36) U/L Alkaline Phosphatase (56-112) IU/L Troponin I (4.0-60.3) pg/mL C-Reactive Protein (0.5-0.9) mg/dL Total Protein (6.0-8.0) g/dL Albumin (3.2-4.6) g/dL Globulin g/dL Albumin/Globulin Ratio SARS-CoV-2 RNA (MACHELLE) Negative (NEGATIVE) Meds: Medications Generic Name Dose Route Start Last Admin Trade Name Freq PRN Reason Stop Dose Admin Sodium Chloride 1,000 mls @ 999 mls/hr 09/02/20 10:00 09/02/20 10:30 Normal Saline IV 250 mls/hr ASDIRECTED MILLA Infusion Levofloxacin/Dextrose 750 mg/ 150 mls @ 100 mls/hr 09/02/20 11:30 09/02/20 11:38 Premix IV 100 mls/hr Q24H MILLA Administration Discontinued Medications Generic Name Dose Route Start Last Admin Trade Name Freq PRN Reason Stop Dose Admin Acetaminophen 650 mg 09/02/20 11:11 09/02/20 11:20 Tylenol PO 09/02/20 11:12 650 mg NOW ONE Administration Sodium Chloride 500 mls @ 999 mls/hr 09/02/20 09:50 09/02/20 10:00 Normal Saline IV 09/02/20 10:20 Not Given .BOLUS ONE Departure - Departure Time of Disposition: 11:53 Disposition: Admitted As Inpatient 64 Condition: Fair Clinical Impression: Community acquired pneumonia Qualifiers: Laterality: left Lung location: lower lobe of lung Qualified Code(s): J18.9 - Pneumonia, unspecified organism - Discharge Information *PRESCRIPTION DRUG MONITORING PROGRAM REVIEWED*: Not Applicable *COPY OF PRESCRIPTION DRUG MONITORING REPORT IN PATIENT MALLORY: Not Applicable Referrals: Jigar Quach MD [Primary Care Provider] - Forms: ED Department Discharge Sepsis Event Note (ED) - Evaluation Sepsis Screening Result: No Definite Risk - Focused Exam Vital Signs: Vital Signs Temp Pulse Resp BP Pulse Ox 09/02/20 09:23 36.8 C 98 16 124/71 93 L - Problem List & Annotations (1) Community acquired pneumonia SNOMED Code(s): 558772935 Code(s): J18.9 - PNEUMONIA, UNSPECIFIED ORGANISM Status: Acute Current Visit: Yes Annotation/Comment:: Admit to InPt Qualifiers: Laterality: left Lung location: lower lobe of lung Qualified Code(s): J18.9 - Pneumonia, unspecified organism - Problem List Review Problem List Initiated/Reviewed/Updated: Yes - My Orders Last 24 Hours: My Active Orders 09/02/20 09:36 UA W/MICROSCOPIC [URIN] Stat 09/02/20 10:00 Sodium Chloride 0.9% [Normal Saline] 1,000 ml IV ASDIRECTED 09/02/20 10:17 Blood Culture x2 Reflex Set [OM.PC] Urgent 09/02/20 10:30 CULTURE BLOOD [BC] Urgent CULTURE BLOOD [BC] Urgent 09/02/20 11:30 Levofloxacin/Dextrose 5%-Water [Levaquin in D5W 750 MG/150 ML] 750 mg Premix Bag 1 bag IV Q24H 09/02/20 11:51 Patient Status Manage Transfer [TRANSFER] Routine - Assessment/Plan Last 24 Hours: My Active Orders 09/02/20 09:36 UA W/MICROSCOPIC [URIN] Stat 09/02/20 10:00 Sodium Chloride 0.9% [Normal Saline] 1,000 ml IV ASDIRECTED 09/02/20 10:17 Blood Culture x2 Reflex Set [OM.PC] Urgent 09/02/20 10:30 CULTURE BLOOD [BC] Urgent CULTURE BLOOD [BC] Urgent 09/02/20 11:30 Levofloxacin/Dextrose 5%-Water [Levaquin in D5W 750 MG/150 ML] 750 mg Premix Bag 1 bag IV Q24H 09/02/20 11:51 Patient Status Manage Transfer [TRANSFER] Routine Plan: Per Hospitalist
[2020-09-02] MEDS ORDERED: Sodium Chloride 0.9% 1,000 ML IV SCH (10:00)
--- NOTE | 2020-09-02 10:42 | CR ---
INDICATION: Hemoptysis. History of renal cell CA with mets to lungs 4 years prior. CHEST ONE VIEW: A single AP upright wheelchair view of the chest was obtained 09/02/20, compared with 05/03/18 and 03/23/18. The heart appears to be within normal limits in size allowing for poor inspiration and AP positioning. The aorta is tortuous. Overlying EKG leads are noted. Some linear densities are noted in the right midlung field likely fibrotic in nature, although some atelectatic change may be present. In the left lower lung field, there is increased density suggesting an area of infiltration scattered throughout the lower portion of the left lower lobe. This appearance is compatible with pneumonia, metastatic disease is felt to be less likely. There is some pleural thickening laterally on the left which may represent pleuritis. Dextroconvex scoliosis of the lower middle thoracic spine is again noted of moderately severe degree. IMPRESSION: 1. Probable infiltrate at the lower lung field on the left, findings may be on the basis of pneumonia and pleuritis, but should be correlated clinically. 2. Linear atelectasis and/or fibrosis, right mid lower lung field. 3. ASD aorta. 4. Scoliosis. Report was given in person to Dr. Flores immediately after the examination was available. [facility]
[2020-09-02] MEDS ORDERED: Acetaminophen 325 MG Tab PO ONE (11:11)
[2020-09-02] MEDS ORDERED: Levofloxacin/Dextrose 5%-Water 750 MG in Premix Bag 1 BAG IV SCH (11:30)
[2020-09-02] MEDS: methylPREDNISolone Sodium Succinate 40 MG/1 ML SDV IVPUSH SCH ×2 (13:26→20:27)
[2020-09-02] MEDS: Enoxaparin 30 MG/0.3 ML Syringe SUBCUT SCH (13:27)
[2020-09-02] MEDS: Azithromycin 500 MG in Sodium Chloride 0.9% 250 ML IV SCH (14:26)
[2020-09-02] MEDS: Sodium Chloride 0.9% 10 ML Syringe FLUSH PRN ×3 (14:27→16:10)
[2020-09-02] MEDS ORDERED: Ondansetron 4 MG/2 ML SDV IVPUSH PRN (15:00)
[2020-09-02] MEDS: Dextrose 5%-0.9% NaCl 1,000 ML IV SCH (18:30)
[2020-09-02] MEDS: Acetaminophen 500 MG Tab PO PRN (20:00)
[2020-09-02] MEDS: Tamsulosin 0.4 MG Cap.ER PO SCH (20:27)
[2020-09-03] MEDS: Dextrose 5%-0.9% NaCl 1,000 ML IV SCH ×3 (02:54→22:03)
[2020-09-03] MEDS: methylPREDNISolone Sodium Succinate 40 MG/1 ML SDV IVPUSH SCH ×3 (04:48→20:14)
[2020-09-03] MEDS: Levothyroxine 50 MCG Tab PO SCH (06:19)
[2020-09-03] MEDS ORDERED: Finasteride 5 MG Tab PO SCH (09:00)
--- NOTE | 2020-09-03 10:37 | PN ---
DATE SEEN: 09/03/2020 SUBJECTIVE: Jesus Alberto Velasco is an 80-year-old male admitted with acute respiratory distress, a confirmed left lower lobe pneumonia, elevated white count and elevated lactic acid, mild hypoxemia. Had a good night. Feeling much better today. No pain. Limited cough, moderate sputum. Sputum culture and blood cultures pending. OBJECTIVE: VITAL SIGNS: 36.5, 72, 134/83, 95% on 2 L. GENERAL: Appears comfortable. HEENT: Mouth and oropharynx clear. NECK: Benign. Thyroid small. CHEST: Decreased breath sounds in left lower lobe distribution. HEART: No ectopy, no murmur. ABDOMEN: Benign. LABORATORY STUDIES: White count fell from 26,700 to 15,400, hemoglobin 13.6 to 11.3. Known renal disease. Lactic acid fell from 5 to 4.2 to 1.9. Cultures negative thus far. IMPRESSION: Left lower lobe pneumonia. PLAN: Continue IV Levaquin, IV azithromycin, IV intravenous steroids, incentive spirometry. We will repeat x-ray of the chest tomorrow. Continue IV fluids. /[id number] /FARHANA
[2020-09-03] MEDS: Aspirin 81 MG Tab.EC PO SCH (11:06)
[2020-09-03] MEDS: Citalopram 20 MG Tab PO SCH (11:06)
--- NOTE | 2020-09-03 12:28 | HP ---
ADMISSION DATE: 09/02/2020 REASON FOR VISIT: Complicated cough, left lower lobe pneumonia. HISTORY OF PRESENT ILLNESS: Jesus Alberto Velasco is an 80-year-old , male from [place], [place], who was seen by Dr. Mann Flores, ER physician, on 09/02/2020. He presented with cough; cold; congestion; one episode of bright red blood-tinged sputum; suspicion for fever, chills, and sweats; and a sense of reduced well-being. Cough is problematic. Denies any complicated shortness of breath, sore throat, or other complicating issue. Fell in the bathroom about 0300 hours due to weakness, EMS was summoned, placed back in bed. Remained in bed through the day. He was seen in the emergency room, found to have a markedly elevated white count of 26,000, left lower lobe pneumonia, and need for hospitalization. MEDICATIONS: Daily medications include: 1. ASA 81 mg 1 p.o. daily for CAD prevention. 2. Flomax 0.4 two at bedtime BPH. 3. Proscar 5 mg 1 p.o. daily BPH. 4. Levothyroxine 50 mcg 1 p.o. daily. PAST MEDICAL HISTORY: Significant for previous nephrectomy and laparotomy for kidney cancer. He has had lung biopsy showing lung carcinoma. He has had abdominal resection for metastatic disease in December 2017, and photovaporization of the prostate in April 2020. He has had a left and right lois hip arthroplasty in March 2020. Chronic illnesses include hypothyroidism and BPH. SOCIAL HISTORY: Retired. Agricultural background. in good health. Never smoked. No chewing. No vaping. About 1 drink per week. FAMILY HISTORY: Negative for early heart disease, diabetes mellitus, or inheritable cancer. REVIEW OF SYSTEMS: CONSTITUTIONAL: Feeling very poorly. EYES: Sees well. EARS: Difficulty with hearing. OROPHARYNX: Intact dentition. CARDIOVASCULAR: Denies chest pain, palpitations, or syncope. RESPIRATORY: Please see HPI. GASTROINTESTINAL: Regular, predictable stools. No blood in the stools. GENITOURINARY: Good voiding pattern. No blood in THE urine. Nocturia times 2 to 3. ORTHOPEDIC: General aches and pains. SKIN: No lesions, eruptions, or moles. ENDOCRINE: No excessive thirst or urination. PSYCHIATRIC: Mood a little bit labile. PHYSICAL EXAMINATION: VITAL SIGNS: Stable and documented. GENERAL: Elderly gentleman. Appears stated age. Cooperative. Conversant. HEENT: Funduscopic benign. Bright TMs. Decreased hearing. Clear nasal discharge. Mouth and oropharynx clear and dry. Tongue midline. Good gag reflex. NECK: Benign. Thyroid small. No adenopathy. No carotid bruits. CHEST: Decreased breath sounds. Rales in left lower lobe distribution. Otherwise, clear. HEART: Distant heart sounds. Occasional ectopy. Soft murmur. ABDOMEN: Benign. Well- healed surgical scars. No hepatosplenomegaly. GENITOURINARY: Normal male genitalia. Hernias absent. RECTAL: Declined, deferred. EXTREMITIES: Well perfused. NEUROMUSCULAR: Intact. LABORATORY STUDIES: White count 26,700, hemoglobin 13.6, neutrophilia 12%. Elevated INR 1.52. Creatinine 2.7, BUN 48, GFR 23. Lactic acid 5, normal 0 to 2. CRP 46, normal 0 to 0.49. Urinalysis revealed moderate occult blood and 0 to 5 white cells. COVID negative. ASSESSMENT: Complicated left lower lobe pneumonia, somewhat immunocompromised individual. PLAN: Hospitalization indicated. IV levofloxacin. IV azithromycin. Supplemental fluids. Low-dose steroids. Expectation for improvement. /[id number] CHUCK/FARHANA
[2020-09-03] MEDS: Enoxaparin 30 MG/0.3 ML Syringe SUBCUT SCH (13:08)
[2020-09-03] MEDS: Azithromycin 500 MG in Sodium Chloride 0.9% 250 ML IV SCH (14:16)
[2020-09-03] MEDS: Sodium Chloride 0.9% 10 ML Syringe FLUSH PRN (14:17)
[2020-09-03] MEDS: Tamsulosin 0.4 MG Cap.ER PO SCH (20:14)
[2020-09-04] MEDS: methylPREDNISolone Sodium Succinate 40 MG/1 ML SDV IVPUSH SCH ×3 (04:55→21:32)
[2020-09-04] MEDS: Acetaminophen 500 MG Tab PO PRN ×2 (05:01→08:47)
[2020-09-04] MEDS: Levothyroxine 50 MCG Tab PO SCH (05:01)
[2020-09-04] MEDS: Dextrose 5%-0.9% NaCl 1,000 ML IV SCH (05:03)
[2020-09-04] MEDS: Citalopram 20 MG Tab PO SCH (08:36)
[2020-09-04] MEDS: Aspirin 81 MG Tab.EC PO SCH (08:36)
--- NOTE | 2020-09-04 10:56 | PN ---
DATE SEEN: 09/04/2020 REASON FOR VISIT: Inpatient community-acquired pneumonia. HISTORY OF PRESENT ILLNESS: Jesus Alberto Velasco is an 80-year-old male admitted with a left-sided pneumonia, fever, markedly elevated white count, and clinical pneumonia. Sputum returned streptococcal pneumoniae. Sensitivities to follow. Clinical response has been satisfactory. Feeling much better. Shortness of breath has resolved. O2 at need has just continued. He is otherwise feeling well. Blood cultures are negative. LABORATORY STUDIES: White count fell from 26.7 to 15.4 to 13, hemoglobin stable at 11, 13.6, 11.3, 12.3, differential satisfactory. Lactic acid has fallen from 5 to 4.2 to 1.9 to 1.3. Chest x-ray requested for today pending. PHYSICAL EXAMINATION: VITAL SIGNS: 96.615 kg, 36.7 degrees Fahrenheit, 63 is the pulse, 157/93, 20, and 93% on room air. GENERAL: Appears comfortable. Mouth and oropharynx clear. NECK: Benign. Thyroid small. CHEST: Decreased breath sounds in left lower lobe. HEART: No ectopy or murmur. ABDOMEN: Benign. ASSESSMENT: Left lower lobe pneumonia. PLAN: Though appears better, given a positive sputum, 5 days of IV antibiotics. Sensitivities to follow, discontinue IV. Encourage oral fluids. /[id number] CHUCK/FARHANA
[2020-09-04] MEDS: Sodium Chloride 0.9% 10 ML Syringe FLUSH PRN ×4 (11:00→21:34)
[2020-09-04] MEDS ORDERED: Levofloxacin/Dextrose 5%-Water 750 MG in Premix Bag 1 BAG IV SCH (11:30)
[2020-09-04] MEDS: Enoxaparin 30 MG/0.3 ML Syringe SUBCUT SCH (13:03)
[2020-09-04] MEDS: Azithromycin 500 MG in Sodium Chloride 0.9% 250 ML IV SCH (13:25)
--- NOTE | 2020-09-04 16:18 | CR ---
INDICATION: Follow up pneumonia. CHEST, TWO VIEWS: PA and 2 lateral views of the chest 09/04/20 were compared with 09/02/20 and 05/03/18. There is a large focal area of what appears to be pneumonia at the left lower lobe with blunting of the posterior sulci bilaterally, compatible with pneumonia and pleuritis. The possibility of neoplasia is difficult to entirely exclude however, and follow up to clearing is recommended. There may be some minimal infiltrate also in the right mid lung field and at the right lung base. A slight decrease in infiltration is suggested on the left. The heart appears to be at the upper limits of normal in size with a tortuous aorta calcified in the arch. Flattened diaphragm leaves with prominent AP diameter and hyperaeration are compatible with COPD. IMPRESSION: 1. Large area of consolidating lung in the left lower lobe. The possibility of neoplasia is difficult to exclude, but findings may simply be on the basis of pneumonia with pleuritis, as there is blunting of the posterior sulcus. 2. Possible minimal patchy pneumonia and pleuritis on the right. 3. ASD aorta - probable ASHD. 4. Dextroconvex scoliosis low-middle thoracic spine. 5. COPD. 6. There may be a slight decrease in infiltration in the left mid lung field. MTDD
[2020-09-04] MEDS: Tamsulosin 0.4 MG Cap.ER PO SCH (21:28)
[2020-09-05] MEDS: methylPREDNISolone Sodium Succinate 40 MG/1 ML SDV IVPUSH SCH ×3 (04:55→21:19)
[2020-09-05] MEDS: Sodium Chloride 0.9% 10 ML Syringe FLUSH PRN ×3 (04:57→21:20)
[2020-09-05] MEDS: Levothyroxine 50 MCG Tab PO SCH (05:01)
[2020-09-05] MEDS: Aspirin 81 MG Tab.EC PO SCH (08:14)
[2020-09-05] MEDS: Citalopram 20 MG Tab PO SCH (08:14)
[2020-09-05] MEDS: Acetaminophen 500 MG Tab PO PRN (08:15)
--- NOTE | 2020-09-05 11:06 | PN ---
DATE SEEN: 09/05/2020 REASON FOR VISIT: Inpatient pneumonia care. HISTORY OF PRESENT ILLNESS: Jesus Alberto Velasco is an 80-year-old male from [place], admitted with acute pneumonia. Followup x-ray 09/04 revealed a persistent infiltrate in the left lower lung field, but some apparent improvement. Doing well. White count is improved. Lactic acid has normalized, he is off O2 and comfortable with his activity. Blood pressure has been migrating upward; 175/91, been persistently high throughout his hospital stay. He has been on no antihypertensives in the meantime. We will start an ARB given today with his underlying renal function. Last creatinine 2.7, GFR of 23. We will start low dose of Apresoline. Otherwise, doing better. Microbiology: Sputum culture grew Strep pneumoniae. Blood cultures x3 within normal limits. Otherwise feeling better. PHYSICAL EXAMINATION: VITAL SIGNS: Blood pressure 192/102, respirations 22, and 94%. GENERAL: Appears comfortable. Speech was fluent. NECK: No JVD. CHEST: Decreased breath sounds, right lower lung field. HEART: Occasional ectopy, soft murmur. ABDOMEN: Benign. ASSESSMENT: lower lobe pneumonia, accelerated blood pressure, underlying kidney disease. PLAN: We will start Apresoline 25 mg 1 p.o. b.i.d. for blood pressure. Complementary care and well being. We will switch from IV to oral antibiotics, intervention and care as appropriate. Likely discharge home tomorrow. /[id number] CHUCK/FARHANA
[2020-09-05] MEDS: Enoxaparin 30 MG/0.3 ML Syringe SUBCUT SCH (13:24)
[2020-09-05] MEDS: Azithromycin 500 MG in Sodium Chloride 0.9% 250 ML IV SCH (13:31)
[2020-09-05] MEDS: hydrALAZINE 25 MG Tab PO SCH (21:17)
[2020-09-05] MEDS: Tamsulosin 0.4 MG Cap.ER PO SCH (21:18)
[2020-09-06] MEDS: Levothyroxine 50 MCG Tab PO SCH (05:19)
[2020-09-06] MEDS ORDERED: Amoxicillin/Clavulanate K 875-125 MG Tab PO SCH (08:00)
[2020-09-06] MEDS: Aspirin 81 MG Tab.EC PO SCH (08:29)
[2020-09-06] MEDS: Citalopram 20 MG Tab PO SCH (08:29)
[2020-09-06] MEDS: hydrALAZINE 25 MG Tab PO SCH (08:29)
[2020-09-06] MEDS ORDERED: amLODIPine 5 MG Tab PO SCH (09:00)
[2020-09-06] MEDS ORDERED: Pneumococcal Polyvalent-23 Vaccine 0.5 ML SDV IM ONE (09:00)
[2020-09-06] MEDS ORDERED: Levofloxacin 250 MG Tab PO SCH (10:00)
[2020-09-06 11:01] VITALS: PULSE 59
[2020-09-06 11:10] VITALS: BP 162/87
--- NOTE | 2020-09-06 12:39 | DISCH ---
DISCHARGE DATE: 09/06/2020 HISTORY: Jesus Alberto is an 80-year-old man with a history of BPH, depression, hypothyroidism, and previous nephrectomy for renal carcinoma and lung biopsy positive for carcinoma. The patient was admitted because of cough, cold, shortness of breath and was found to have a left lower lobe pneumonia. Sputum came back positive for pneumococcus. The patient was treated with IV antibiotics. His condition slowly improved and white count came down from 26,000 to 11,000. Initial BUN and creatinine were 48 and 2.7, and improved to 42 and 1.5. Blood pressure remained significantly elevated in the 180 to 190/100 range. He was started on Apresoline and then switched to amlodipine for blood pressure control. He was discharged in improved condition to home. He is to have follow up with Dr. Quach in 2 weeks. MEDICATIONS ON DISCHARGE: 1. Augmentin 875 mg b.i.d. x1 week. 2. Amlodipine 5 mg daily. 3. Aspirin 81 mg daily. 4. Citalopram 20 mg daily. 5. Levothyroxine 50 mcg daily. 6. Flomax 0.8 mg daily. 7. Artificial Tears p.r.n. He is to call should he have any questions or problems prior to his upcoming appointment. /[id number] DAJA/FARHANA
== END 2020-09-06 11:08 | disposition home or self-care (01) | DRG 194 ==
LOC: FB.ED 09:23 → FB.MS 11:51
PROVIDERS: ADMIT Family Medicine; ATTEND Family Medicine
DX: J18.9 Pneumonia, unspecified organism (principal); I69.351 Hemiplegia and hemiparesis following cerebral infarction affecting right dominant side; N40.0 Benign prostatic hyperplasia without lower urinary tract symptoms; E03.9 Hypothyroidism, unspecified; Z20.828 Contact with and (suspected) exposure to other viral communicable diseases; Z88.1 Allergy status to other antibiotic agents; Z88.8 Allergy status to other drugs, medicaments and biological substances; Z79.82 Long term (current) use of aspirin; Z85.118 Personal history of other malignant neoplasm of bronchus and lung; Z79.890 Hormone replacement therapy; Z88.2 Allergy status to sulfonamides; Z79.899 Other long term (current) drug therapy; I10 Essential (primary) hypertension; Z87.01 Personal history of pneumonia (recurrent); Z85.528 Personal history of other malignant neoplasm of kidney; Z98.49 Cataract extraction status, unspecified eye; F41.9 Anxiety disorder, unspecified; D84.9 Immunodeficiency, unspecified; E20.9 Hypoparathyroidism, unspecified; Z23 Encounter for immunization
CPT/HCPCS: 36415; 71045; 80053; 83605; 84484; 85025; 85379; 85610; 86140; 87040 ×2; 93005; 96374; 99284; 99285; A9270; J1956; J7030; U0002; 71046; 80069; 81001; 87070; 87077; 87205; 90653; 90732; 94150; 97161-GP; 99222; 99231; 99232; 99238; G0008; G0009; J0456; J1650; J2405; J2920; J7050

== ENCOUNTER 2022-03-07 06:15 | Emergency (ER) | payer MEDICARE, BC ==
[2022-03-07] MEDS ORDERED: cefTRIAXone 1 GM Vial IM ONE (06:56)
[2022-03-07] MEDS ORDERED: Morphine 2 MG/ML SYRINGE IM ONE (06:59)
[2022-03-07] MEDS ORDERED: Lidocaine 2% Jelly 30 ML Tube MUCMEM ONE (07:00)
[2022-03-07] MEDS ORDERED: Lidocaine 2% Viscous Solution 15 ML UD ONE (07:08)
[2022-03-07] MEDS ORDERED: Lidocaine 2% Viscous Solution 15 ML UD PO ONE (07:15)
[2022-03-07] MEDS ORDERED: Metoprolol Tartrate 5 MG/5 ML SDV IVPUSH ONE (08:08)
[2022-03-07] MEDS ORDERED: Nitroglycerin 0.4 MG Tab.SL SL PRN (08:10)
[2022-03-07] MEDS ORDERED: Ticagrelor 90 MG Tab PO ONE (08:20)
[2022-03-07] MEDS ORDERED: Heparin Sodium/0.45% NaCl 500 ML IV SCH (08:21)
[2022-03-07 08:23] VITALS: PULSE 70
[2022-03-07] MEDS ORDERED: Sodium Chloride 0.9% 1,000 ML IV SCH (08:30)
[2022-03-07] MEDS ORDERED: Aspirin 81 MG Tab.Chew PO ONE (08:34)
[2022-03-07 08:58] VITALS: BP 174/95
[2022-03-07] MEDS ORDERED: Morphine 2 MG/ML SYRINGE IVPUSH ONE (09:32)
[2022-03-07] MEDS ORDERED: Morphine 4 MG/ML VIAL IVPUSH ONE (10:19)
[2022-03-07] MEDS ORDERED: Nitroglycerin/D5W 25 MG/250 ML BOTTLE IV SCH (11:15)
== END 2022-03-07 11:55 ==
LOC: FB.ED 06:15
DX: K05.10 Chronic gingivitis, plaque induced (principal); E03.9 Hypothyroidism, unspecified; I10 Essential (primary) hypertension; Z79.899 Other long term (current) drug therapy; Z88.8 Allergy status to other drugs, medicaments and biological substances; Z88.1 Allergy status to other antibiotic agents; Z88.2 Allergy status to sulfonamides
CPT/HCPCS: 36415; 71045; 80048; 84484; 85025; 93005; 96365; 96366; 96372; 96375; 99281; 99285-25; A9270-GY; J0696; J1644; J2270; J3490; J7030

== ENCOUNTER 2022-11-03 21:46 | Emergency (ER) | payer MEDICARE, BC ==
[2022-11-03] MEDS ORDERED: Sodium Chloride 0.9% 10 ML Syringe FLUSH PRN (21:58)
[2022-11-03] MEDS ORDERED: Tranexamic Acid 1,000 MG in Sodium Chloride 0.9% 50 ML IV ONE (21:58)
[2022-11-03] MEDS ORDERED: Ondansetron 4 MG/2 ML SDV IVPUSH ONE (22:36)
[2022-11-04 01:41] VITALS: BP 140/76; PULSE 72
== END 2022-11-03 23:25 | disposition home or self-care (01) ==
LOC: FB.ED 21:46
DX: R04.0 Epistaxis (principal); I10 Essential (primary) hypertension; M19.90 Unspecified osteoarthritis, unspecified site; E20.9 Hypoparathyroidism, unspecified; E03.9 Hypothyroidism, unspecified; Z88.8 Allergy status to other drugs, medicaments and biological substances; Z88.1 Allergy status to other antibiotic agents; Z88.2 Allergy status to sulfonamides; Z79.899 Other long term (current) drug therapy
CPT/HCPCS: 30903; 96365; 96375; 99282; 99283; J2405; J3490

== ENCOUNTER 2023-03-07 12:13 | Emergency (ER) | payer MEDICARE, BC ==
[2023-03-07] MEDS ORDERED: Albuterol 8 GM Inhaler INH ONE (12:14)
[2023-03-07 13:33] LABS: ESTIMATED GFR 37 mL/min (>60)
[2023-03-07 14:15] LABS: CORONAVIRUS COVID-19 NAA NEGATIVE (NEGATIVE)
[2023-03-07] MEDS ORDERED: Albuterol/Ipratropium 3.0-0.5 MG/3 ML Neb Soln NEB ONE (15:07)
[2023-03-07 20:05] VITALS: BP 151/95; PULSE 84
== END 2023-03-07 16:40 | disposition home or self-care (01) ==
LOC: FB.ED 12:13
DX: I10 Essential (primary) hypertension (principal); J45.909 Unspecified asthma, uncomplicated; Z88.1 Allergy status to other antibiotic agents; Z88.8 Allergy status to other drugs, medicaments and biological substances; Z79.82 Long term (current) use of aspirin; Z20.822 Contact with and (suspected) exposure to COVID-19
CPT/HCPCS: 0241U; 36415; 71045; 80053; 81001; 83605; 83880; 84484; 85025; 85379; 86140; 93005; 94640; 99284; A9270; J7620

== ENCOUNTER 2023-03-10 16:46 | Emergency (ER) | payer MEDICARE, BC ==
[2023-03-10 17:30] LABS: ESTIMATED GFR 39 mL/min (>60)
[2023-03-10 20:17] VITALS: BP 164/103; PULSE 65
== END 2023-03-10 18:25 | disposition home or self-care (01) ==
LOC: FB.ED 16:46
DX: J20.9 Acute bronchitis, unspecified (principal); J06.9 Acute upper respiratory infection, unspecified; I10 Essential (primary) hypertension; N40.0 Benign prostatic hyperplasia without lower urinary tract symptoms; E03.9 Hypothyroidism, unspecified; M19.90 Unspecified osteoarthritis, unspecified site; Z88.1 Allergy status to other antibiotic agents; Z88.8 Allergy status to other drugs, medicaments and biological substances; Z79.899 Other long term (current) drug therapy; Z79.82 Long term (current) use of aspirin
CPT/HCPCS: 36415; 80048; 85025; 99284

== ENCOUNTER 2024-05-12 09:10 | Emergency (ER) | payer MEDICARE, BC ==
[2024-05-12] MEDS ORDERED: Sodium Chloride 0.9% 10 ML Syringe FLUSH PRN (09:34)
[2024-05-12] MEDS: Sodium Chloride 0.9% 1,000 ML IV SCH (09:38)
[2024-05-12 09:43] LABS: BASOPHILS ABSOLUTE AUTO 0.1 x10-3/uL (0.0-0.3); BASOPHILS PERCENT AUTO 0.6 % (0.3-3.8); EOSINOPHILS ABSOLUTE AUTO 0.3 x10-3/uL (0.0-0.6); EOSINOPHILS PERCENT AUTO 2.9 % (0.1-6.8); HEMATOCRIT 46.4 % (38.3-50.1); HEMOGLOBIN 15.4 g/dL (12.9-17.7); LYMPHOCYTES ABSOLUTE AUTO 2.1 x10-3/uL (0.5-4.5); LYMPHOCYTES PERCENT AUTO 21.6 % (15.8-45.3); MEAN CORPUSCULAR HGB CONC 33.3 g/dL (28.7-35.3); MEAN PLATELET VOLUME 7.5 fL (6.7-11.0); MONOCYTES ABSOLUTE AUTO 0.5 x10-3/uL (0.0-1.2); MONOCYTES PERCENT AUTO 5.2 % (5.5-15.2); NEUTROPHILS ABSOLUTE AUTO 6.6 x10-3/uL (1.7-6.9); NEUTROPHILS PERCENT AUTO 69.7 % (40.3-71.8); PLATELET COUNT,PLT 269 x10(3)uL (117-477); RED BLOOD CELL COUNT 5.15 x10(6)uL (3.90-5.90); RED CELL DISTRIBUTION WIDTH 13.9 % (12.4-15.0); WHITE BLOOD CELL COUNT,WBC 9.5 x10-3/uL (3.2-10.1)
[2024-05-12 09:48] LABS: BLOOD UREA NITROGEN,BUN 23 mg/dL (7-18); BUN/CREATININE RATIO 13.5 (9-20); CARBON DIOXIDE,CO2 26 mmol/L (21-32); CHLORIDE,CL 107 mmol/L (100-110); CREATININE 1.7 mg/dL (0.70-1.30); EST CRCL DRUG DOSING (CG) 31.77 mL/min; ESTIMATED GFR 39 mL/min (>60); GLUCOSE RANDOM 130 mg/dL (80-116); POTASSIUM,K 3.5 mmol/L (3.5-5.3); SODIUM,NA 142 mmol/L (135-145)
[2024-05-12 09:53] LABS: A/G RATIO 0.7; ALANINE AMINOTRANSFERASE,ALT 23 U/L (12-36); ALBUMIN 2.6 g/dL (3.2-4.6); ALKALINE PHOSPHATASE 195 IU/L (56-112); ASPARTATE AMNIOTRANSFERASE,AST 25 IU/L (5-25); BILIRUBIN TOTAL 0.7 mg/dL (0.1-1.3); PROTEIN TOTAL,TP 6.5 g/dL (6.0-8.0)
[2024-05-12 10:01] LABS: TROPONIN I 22.8 pg/mL (4.0-60.3)
[2024-05-12 11:55] LABS: BILIRUBIN,URINE NEGATIVE (NEGATIVE); GLUCOSE,URINE NORMAL (NORMAL); KETONES,URINE NEGATIVE (NEGATIVE); LEUKOCYTE ESTERASE,URINE NEGATIVE (NEGATIVE); NITRITE,URINE NEGATIVE (NEGATIVE); OCCULT BLOOD,URINE NEGATIVE (NEGATIVE); PROTEIN,URINE NEGATIVE (NEGATIVE); UROBILINOGEN,URINE NORMAL (NEGATIVE)
[2024-05-12 12:03] LABS: APPEARANCE,URINE CLEAR (CLEAR); BACTERIA,URINE FEW (NS); COLOR,URINE YELLOW (YELLOW); SQUAMOUS EPITHELIAL CELLS,UR OCCASIONAL (NS,R,O); WBC,URINE 0-5 (0-5)
[2024-05-12 12:06] VITALS: BP 140/80; PULSE 60
== END 2024-05-12 11:50 | disposition home or self-care (01) ==
LOC: FB.ED 09:10
DX: I42.0 Dilated cardiomyopathy (principal); C64.2 Malignant neoplasm of left kidney, except renal pelvis; R53.1 Weakness; I25.10 Atherosclerotic heart disease of native coronary artery without angina pectoris; I11.0 Hypertensive heart disease with heart failure; I50.9 Heart failure, unspecified; M19.90 Unspecified osteoarthritis, unspecified site; E20.9 Hypoparathyroidism, unspecified; Z79.899 Other long term (current) drug therapy; Z79.82 Long term (current) use of aspirin; Z88.8 Allergy status to other drugs, medicaments and biological substances; Z88.2 Allergy status to sulfonamides; Z88.1 Allergy status to other antibiotic agents
CPT/HCPCS: 71045; 80053; 81001; 83880; 84484; 85025; 85379; 93005; 96360; 96361; 99285; J7030